=== PATIENT | female | born 1995 | race Native Hawaiian/Other Pacific Islander ===

== ENCOUNTER 2021-07-17 09:14 | Emergency (ER) | payer OTHER, SELFPAY ==
[2021-07-17 09:19] VITALS: BP 147/71; PULSE 100; RESP 18; TEMP 36.2; O2SAT 98; BMI 41.1
[2021-07-17] MEDS: LORazepam 0.5 MG TABLET PO (09:34)
[2021-07-17] MEDS: Diphth,Pertus(ACell),Tet Adult 0.5 ML SYRINGE IM (09:38)
--- NOTE | 2021-07-17 10:33 | ED.WOUNDLAC ---
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 No numbness no weakness no tingling no other injury Related Data Allergies Allergy/AdvReac Type Severity Reaction Status Date / Time Penicillins [PENICILLINS] Allergy Unknown HIVES Verified 07/17/21 09:17 Review of Systems Review of Systems: Positive for left index finger laceration Negatives are no numbness weakness or tingling, no joint pains, no other injury PMFSH Past Medical History Source: nursing notes reviewed Social History Social History Advance Directives: No Advance Directives Information Provided: Yes Physical Exam Vital Signs: Vital Signs: Last Vital Signs Temp 97.2 F 07/17/21 09:19 Pulse 100 07/17/21 09:19 Resp 18 07/17/21 09:19 BP 147/71 H 07/17/21 09:19 Pulse Ox 98 07/17/21 09:19 BMI result Body Mass Index 41.1 General appearance is no acute distress but anxious Head is normocephalic atraumatic Neck is supple Respiratory no distress Extremities the left index finger has a 1.5 cm flap laceration that is superficial and well aligned with no active bleeding, full range of motion in the finger no tendon deficits on flexion or extension and neurovascular intact distal Course Course Course Narrative: Patient's anxiety was relieved after a 0.5 mg of Ativan and she got a tetanus shot The left index finger superficial flap lack was cleansed and irrigated with normal saline and closed with Steri-Strips Discharge Plan Discharge Clinical Impression: Laceration Patient Disposition: Home, Self-Care Additional Instructions: Cut was closed with Steri-Strips, you could remove Steri-Strips in 5-6 days You got a tetanus shot Return any time for redness swelling any sign of infection You could follow with [facility] if needed for any concerns Referrals: [facility] [Provider Group] - 2 days (Left index finger laceration) Stand Alone Forms: Work/School Release Interventions: ED Discharge Assessment Last Done: 07/17/21 10:39 Discharge Date/Time: 07/17/21 10:39
== END 2021-07-17 10:39 | disposition home or self-care (01) ==
PROVIDERS: Emergency Provider Emergency Medicine
DX: S61.211A Laceration without foreign body of left index finger without damage to nail, initial encounter (principal); W26.0XXA Contact with knife, initial encounter; Y93.G1 Activity, food preparation and clean up; Y92.233 Cafeteria of hospital as the place of occurrence of the external cause; Y99.0 Civilian activity done for income or pay
CPT/HCPCS: 90471; 90715; 99282; 99284

== ENCOUNTER 2021-11-16 19:27 | Emergency (ER) | payer SELFPAY ==
--- NOTE | 2021-11-16 | ECG_ITS ---
Test Reason : sob Blood Pressure : / mmHG Vent. Rate : 104 BPM Atrial Rate : 104 BPM P-R Int : 148 ms QRS Dur : 086 ms QT Int : 318 ms P-R-T Axes : 063 048 015 degrees QTc Int : 418 ms Sinus tachycardia Otherwise normal ECG No previous ECGs available Referred By: Generic ED Physician Electronically Signed By:SAVANNAH RUIZ MD
--- NOTE | ~2021-11-16 | XR_ITS ---
EXAMINATION: CHEST 2 VIEWS CLINICAL INFORMATION: cough . COMPARISON: 11/27/2018. TECHNIQUE: PA and lateral views of the chest obtained. FINDINGS: The lungs are mildly hypoexpanded. No focal infiltrate, effusion, edema, or pneumothorax. Cardiac and mediastinal silhouettes are within normal limits for technique. No acute bony abnormality seen XR/XR chest 2V IMPRESSION: No evidence of acute disease
[2021-11-16 19:31] VITALS: BP 144/72; PULSE 116; RESP 16; TEMP 37.5; O2SAT 98; BMI 40.3
[2021-11-16 19:49] LABS: MANUAL DIFF FLAG NO
[2021-11-16 19:50] LABS: Basophils Percent Auto 0.5 % (0-2); Eosinophils Absolute Auto 0.2 X10*3/uL (0.0-0.4); Eosinophils Percent Auto 1.9 % (0-4); Hematocrit 38.1 % (37.0-47.0); Hemoglobin 13.3 g/dl (12.0-16.0); Imm Gran Abs Auto 0.04 X10*3/uL (0.00-0.03); Imm Gran Pct Auto 0.5 % (0.0-0.4); Lymphocytes Absolute Auto 1.2 X10*3/uL (1.2-4.9); Lymphocytes Percent Auto 14.7 % (20-40); Mean Corpuscular HGB Conc 34.9 g/dl (31.0-35.0); Mean Corpuscular Hemoglobin 31.1 pg (27.0-33.0); Mean Platelet Volume 10.1 fL (9.4-12.3); Monocytes Absolute Auto 0.5 X10*3/uL (0.1-1.2); Monocytes Percent Auto 6.3 % (2-11); Neutrophils Absolute Auto 6.4 x10*3/uL (2.0-8.3); Neutrophils Percent Auto 76.1 % (45-73); Platelet Count 248 X10*3/uL (160-400); Red Blood Count 4.28 X10*6/uL (4.20-5.50); Red Cell Distribution Width 12.9 % (11.0-16.0); White Blood Count 8.5 X10*3/uL (4.8-10.8)
--- NOTE | 2021-11-16 20:00 | ED_ITS ---
HPI - Asthma General Chief Complaint: Asthma Stated Complaint: asthma Time Seen by Provider: 11/16/21 19:56 Source: patient Limitations: no limitations History of Present Illness HPI Narrative: This is a 26-year-old female with history of asthma, who was at work today when she developed wheezing. She used her albuterol inhaler several times but still felt like she had tightness in her chest radiating up into her throat. She has had a dry cough. She denies any fever. She denies any pain or swelling in her legs. She has never had to be admitted for her asthma. She denies any URI symptoms or fever. She did state work for 8 hours trying to deal with her breathing. Related Data Previous Rx's Medication Instructions Recorded albuterol sulfate 90 mcg/actuation 2 inh INHALATION Q4H PRN #1 ea 11/16/21 breath activated powder inhaler prednisone 20 mg tablet 40 mg PO DAILY #10 tab 11/16/21 Allergies Allergy/AdvReac Type Severity Reaction Status Date / Time Penicillins [PENICILLINS] Allergy Unknown HIVES Verified 07/17/21 09:17 Review of Systems Review of Systems: Yes all other systems are reviewed and are negative Constitutional: Constitutional: Reports as per HPI and Denies fever(s) Eyes: Eyes: Reports as per HPI and Reports no additional eye complaints ENT: Reports system reviewed and no additional complaints, except as documented, Reports as per HPI, Denies nasal congestion, Denies nasal discharge and Reports sore throat Cardiovascular: Cardiovascular: Reports as per HPI, Reports chest pain and Reports dyspnea Respiratory: Respiratory: Reports as per HPI, Reports cough, Reports dyspnea a nd Reports wheezing Gastrointestinal: Gastrointestinal: Reports as per HPI, Denies abdominal pain, Denies diarrhea and Denies vomiting Genitourinary: Genitourinary: Reports as per HPI, Denies hematuria, Denies urinary frequency and Denies dysuria Musculoskeletal: Musculoskeletal: Reports no additional musculoskeletal complaints and Denies numbness Integumentary/Breasts: Skin/Breast: Reports as per HPI and Denies rash Neurologic: Reports as per HPI, Denies focal weakness and Denies numbness Psychiatric: Psychiatric: Reports no additional psychiatric complaints and Reports as per HPI Endocrine: Endocrine: Reports no additional endocrine complaints and Reports as per HPI Hematologic/Lymphatic: Hematologic/Lymphatic: Reports no additional hematologic/lymphatic complaints, Reports as per HPI and Reports other (No peripheral edema) Allergic/Immunologic: Allergic/Immunologic: Reports wheezing PMFSH Social History Social History Advance Directives: No Physical Exam Vital Signs: Vital Signs: Last Vital Signs Temp 99.5 F 11/16/21 19:31 Pulse 105 H 11/16/21 20:27 Resp 13 11/16/21 20:27 BP 144/72 H 11/16/21 19:31 Pulse Ox 98 11/16/21 19:31 BMI result Body Mass Index 40.3 Const: Other: PERRLA Conj Koppel Mucous membranes moist Throat clear Neck supple Lungs CTA, no wheezes or crackles Heart tachycardic,no murmurs rubs or gallops Abs soft, non tender, non distended Extremities no pitting edema Neuro alert and oriented x 3, non focal, somewhat anxious appearing MDM - Asthma MDM Narrative Medical decision making narrative: Patient had a bronchospastic cough, was not wheezing on exam, was talking in full sentences. Chest x-ray unremarkable. EKG shows tachycardia but no other concerning changes. COVID negative. Patient improved after DuoNeb, prednisone, Ativan. Patient appeared to have some anxiety component. Will treat with albuterol, prednisone as an outpatient Lab Data Attestation: I reviewed the patient's lab results. Result diagrams: 11/16/21 19:43 11/16/21 19:43 Labs: Lab Results 11/16/21 11/16/21 11/16/21 Range/Units 19:43 19:43 20:09 WBC 8.5 (4.8-10.8) X10*3/uL RBC 4.28 (4.20-5.50) X10*6/uL Hgb 13.3 (12.0-16.0) g/dl Hct 38.1 (37.0-47.0) % MCV 89.0 (80.0-98.0) fL MCH 31.1 (27.0-33.0) pg MCHC 34.9 (31.0-35.0) g/dl RDW 12.9 (11.0-16.0) % Plt Count 248 (160-400) X10*3/uL MPV 10.1 (9.4-12.3) fL Immature Gran % (Auto) 0.5 H (0.0-0.4) % Neut % (Auto) 76.1 H (45-73) % Lymph % (Auto) 14.7 L (20-40) % [place] % (Auto) 6.3 (2-11) % Eos % (Auto) 1.9 (0-4) % Baso % (Auto) 0.5 (0-2) % Lymph # (Auto) 1.2 (1.2-4.9) X10*3/uL [place] # (Auto) 0.5 (0.1-1.2) X10*3/uL Eos # (Auto) 0.2 (0.0-0.4) X10*3/uL Baso # (Auto) 0.0 (0.0-0.2) X10*3/uL Abs Immat Gran (auto) 0.04 H (0.00-0.03) X10*3/uL Absolute Neuts (auto) 6.4 (2.0-8.3) x10*3/uL Absolute Nucleated RBC 0.000 (0.0-0.012) X10*3/uL Nucleated RBC % (auto) 0.0 (0.0-0.2) /100WBC Sodium 135 (135-145) mmol/L Potassium 3.8 (3.3-5.1) mmol/L Chloride 106 (96-108) mmol/L Carbon Dioxide 18 L (22-29) mmol/L Anion Gap 15 (12-20) BUN 13 (9-16) mg/dL Creatinine 0.80 (0.5-1.4) mg/dL Estim Creat Clear Calc 125.8 Estimated GFR > 60 Random Glucose 90 (60-115) mg/dL Calcium 9.0 (8.4-10.2) mg/dL Total Bilirubin 0.7 (0.0-1.0) mg/dL AST 23 (5-31) U/L ALT 26 (0-31) U/L Alkaline Phosphatase 78 (39-117) U/L Total Protein 7.7 (6.5-8.0) g/dL Albumin 4.3 (3.5-5.0) g/dL COVID-19 (NILS) Negative (Negative) COVID-19 Clin Com See Note ECG Data ECG interpretation date: 11/16/21 ECG interpretation time: 20:07 Interpretation: Sinus rhythm with a rate of 104. No ST elevation or depression. Normal QRS axis. No ectopy. Discharge Plan Discharge Clinical Impression: Asthma with acute exacerbation Patient Disposition: Home, Self-Care Instructions: Asthma (ED) Additional Instructions: Drink plenty of fluids. Use the prednisone and albuterol as prescribed. Follow up with your primary care physician Prescriptions: New albuterol sulfate 90 mcg/actuation aerosol powdr breath activated 2 inh inhalation Q4H PRN (Reason: shortness of breath or wheezing) Qty: 1 1RF prednisone 20 mg tablet 40 mg PO DAILY Qty: 10 0RF
[2021-11-16 20:05] LABS: Alanine Aminotransferase 26 U/L (0-31); Albumin Level 4.3 g/dL (3.5-5.0); Alkaline Phosphatase 78 U/L (39-117); Anion Gap 15 (12-20); Aspartate Amino Transferase 23 U/L (5-31); Bilirubin Total 0.7 mg/dL (0.0-1.0); Blood Urea Nitrogen 13 mg/dL (9-16); Carbon Dioxide 18 mmol/L (22-29); Chloride 106 mmol/L (96-108); Creatinine Clr Calc Pharmacy 125.8; Estimated Glomerular Filt Rate > 60; Glucose Random 90 mg/dL (60-115); Potassium 3.8 mmol/L (3.3-5.1); Sodium 135 mmol/L (135-145); Total Protein 7.7 g/dL (6.5-8.0)
[2021-11-16] MEDS: LORazepam 1 MG TABLET PO (20:07)
[2021-11-16] MEDS: predniSONE 20 MG TABLET 40 MG PO (20:07)
[2021-11-16] MEDS: Albuterol/Iprat 2.5/0.5MG 3 ML AMPUL.NEB INHALE (20:26)
[2021-11-16 20:27] VITALS: PULSE 105; RESP 13; O2SAT 98
[2021-11-16 20:28] LABS: COVID-19 Test Negative (Negative)
--- NOTE | 2021-11-16 21:25 | PC.NURSE ---
Reviewed discharge instructions with pt. pt verbalized understanding.
== END 2021-11-16 21:27 | disposition home or self-care (01) ==
PROVIDERS: Emergency Provider Emergency Medicine
DX: J45.901 Unspecified asthma with (acute) exacerbation (principal); R05.9 Cough, unspecified; R06.02 Shortness of breath; Z20.822 Contact with and (suspected) exposure to COVID-19; Z79.899 Other long term (current) drug therapy
CPT/HCPCS: 36415; 71046; 80053; 85025; 87635; 93005; 94640; 99283; 99284

== ENCOUNTER 2024-02-10 09:00 | Outpatient (AMB) | payer OTHER, SELFPAY ==
--- NOTE | 2024-02-10 09:01 | MHC.PC.OV ---
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 Required: No Is last menstrual period known: Yes Last menstrual period: 01/18/24 Post menopausal: No Patient : No Allergies Penicillins [PENICILLINS] Allergy (Unknown, Verified 02/10/24 09:10) HIVES Medication List - Last Reconciled 02/10/24 by Joel Pñea CNP albuterol sulfate 90 mcg/actuation 2 inhalations inhalation Q4H PRN prednisone 40 mg (2 x 20 mg) PO DAILY Tobacco use date assessed: 02/10/24 Dental Screening Dental Screen Date: 02/10/24 Did you have a dental visit in the last 12 months?: No Did you have a dental problem in the last 6 months where you did not have access to dental care?: No Was dental information given to patient?: Yes HPI HPI Comments History of Present Illness Details New patient Prior PCP:?? [facility] x 1 Last office visit/CPE: More than 12 years Acute issue(s): Psoriasis -She is currently on Taltz 80mg/ml injection SC monthly. 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 She sleeps an average or 2-3 hours nightly. She has been applying for a job online Anxiety/depression -She notes that she has always been significantly anxious; she has panic attacks (sweating and shaking) in public. She notes that she has been feeling depressed since she lost her job. She has never been diagnosed with anxiety and depression because she has not been seen by a healthcare provider in a long time. She denies SI/HI She notes that she has been making healthy dietary changes. She walks a lot PMHx: Asthma (last episode was on 07/2023), psoriasis, obesity SurgHx: None FHx: Dad: Appendectomy at age 5 SocHx: Smokes 1 cigarette weekly; has has been smoking for 18 years with h/o 1-2 pack, slowly cut down. Drinks alcohol ( fruit drinks and sometimes beers) occasionally. She smokes 5-7 blunts daily, calms and relaxes her and give her appetite She notes that she is sexually active, in a monogamous relationship, and has no concerns for STD She has never had a pap smear test Her nails are very long and painted. Therefore, unable to obtain oxygen saturation [facility] Medical History (Updated 02/10/24 @ 10:11 by Joel Peña CNP) Drug addiction Depression Anxiety Psoriasis Hx of eczema Headache Acid reflux Asthma Surgical History (Updated 02/10/24 @ 10:07 by Siri Yusuf) History of appendectomy Family History (Updated 02/10/24 @ 09:22 by Siri Yusuf) Father Substance abuse High blood pressure High cholesterol Diabetes Cardiovascular disease Mother Asthma High blood pressure High cholesterol Social History Housing: Apartment Patient Tobacco Use Status: Current someday Tobacco user Cigarette Packs Per Day: 0 Cigarettes Per Day: 1 e-Cigarette/Vaping Use: Never Used Second Hand Smoke Exposure: No Substance Use Type: Marijuana service: No Current occupational status: unemployed Current occupational exposures/hazards: No Cognitive needs: No Hearing needs: No Vision needs: No Female Reproductive History Menstrual Date of last menstrual period: 01/18/24 Questionnaire PHQ-9 Over the last 2 weeks, how often have you been bothered by any of the following problems? 1. Little interest or pleasure in doing things: nearly every day 2. Feeling down, depressed, or hopeless: nearly every day 3. Trouble falling or staying asleep, or sleeping too much: nearly every day 4. Feeling tired or having little energy: nearly every day 5. Poor appetite or overeating: nearly every day 6. Feeling bad about yourself - or that you are a failure or have let yourself or your family down: nearly every day 7. Trouble concentrating on things, such as reading the newspaper or watching television: more than half the days 8. Moving or speaking so slowly that other people could have noticed. Or the opposite - being so fidgety or restless that you have been moving around a lot more than usual: not at all 9. Thoughts that you would be better off or of hurting yourself in some way: not at all Total score: 20 Depression Screening Interpretation: Positive Depression Screening Follow-up: Existing condition and Community Mental Health Worker F/U Depression Screening Done: Yes 97026 - PHQ-9 Billing: Yes Source: Developed by Drs. Kishore Ellis, Sabiha Braun, John Rey and colleagues, with an educational vesna from [email or web address] Thrive Questionnaire Date Thrive assessed: 02/10/24 I am a: Patient What is your living situation today?: I have a steady place to live Within the past 12 months, did the food you bought not last and you didn't have the money to get more?: Never true Within the past 12 months, did you worry whether your food would run out before you got money to buy more?: Never true Do you have trouble paying for medicines?: Yes Do you have trouble getting transportation to medical appointments?: No Do you have trouble paying your heating and electricity bill?: No Do you have trouble taking care of your child, family member or friend?: No Do you have trouble with day-to-day activities such as bathing, preparing meals, shopping, managing finances, etc.?: No Are you currently unemployed and looking for a job?: Yes Are you interested in more education?: No Please select the resources that you would like help with: Paying for medicine and Job search/training Currently or been in a relationship where the following occur: No concerns reported THRIVE Score: 0 AUDIT C Alcohol Use Questionnaire (AUDIT-C) 1. How often do you have a drink containing alcohol?: 2-4 times a month 2. How many drinks containing alcohol do you have on a typical day when you are drinking?: 7 to 9 3. How often do you have six or more drinks on one occasion?: Monthly Total Score: 7 Score Reviewed/Action Taken: Yes KIRSTIE-7 AMB Questionnaire KIRSTIE-7 Date KIRSTIE - 7 assessed: 02/10/24 Feeling nervous, anxious, or on edge: 3 = Nearly every day Not being able to stop or control worryin = More than half the days Worrying too much about different things: 2 = More than half the days Trouble relaxin = Nearly every day Being so restless that it is hard to sit still: 3 = Nearly every day Becoming easily annoyed or irritable: 3 = Nearly every day Feeling afraid as if something awful might happen: 2 = More than half the days Total KIRSTIE-7 score (0-4 normal; 5-9 mild; 10-14 moderate; 15-21 severe): 18 Source: Developed by Drs. Kishore Ellis, Sabiha Braun, John Rey and colleagues, with an educational vesna from [email or web address] KIRSTIE-7 Assessment Billing KIRSTIE-7 Assessment Tool: KIRSTIE-7 Assessment 43372 ACT Questionnaire In the past 4 weeks, how much of the time did your asthma keep you from getting as much done at work, school or at home?: None of the time During the past 4 weeks, how often have you had shortness of breath?: Once a day During the past 4 weeks, how often did your asthma symptoms wake you up at night or earlier than usual in the morning?: Once a week During the past 4 weeks, how often have you had to use your rescue inhaler or nebulizer medication?: Once a week or less How would you rate your asthma control during the past 4 weeks?: Well controlled ACT Interpretation: Negative Score: 18 Review of Systems Const Details: Denies chills, Denies fatigue, Denies fever(s), Denies headache(s) and Denies weakness HEENT Denies change in vision, Denies dizziness, Denies headache(s), Denies hearing loss, Denies nasal congestion, Denies sinus pain, Denies sinus pressure and Denies sore throat Card Denies chest pain, Denies lightheadedness, Denies dyspnea and Denies other (palpitations) Resp Denies cough, Denies dyspnea and Denies wheezing GI Denies abdominal pain, Denies melena, Denies hematochezia, Denies change in bowel habits, Denies dyspepsia and Denies nausea Denies hematuria and Denies dysuria Musc Denies abnormal gait, Denies myalgias, Denies arthralgias, Denies numbness and Denies tingling Skin/Breast Reports psoriasis, Denies unusual bruising and Denies wounds Neuro Denies abnormal gait, Denies dizziness, Denies headache(s), Denies memory loss, Denies numbness, Denies Sensory deficit (Neuro), Denies tingling and Denies weakness Psych Denies anxiety, Denies depression and Denies memory loss Endo Denies cold intolerance, Denies fatigue, Denies heat intolerance, Denies polydipsia and Denies polyuria Tony/Lymph Denies easy bleeding and Denies easy bruising Aller/Immun Denies wheezing Physical exam (Primary Care) Vital Signs: Last Vital Signs Temp 98.3 F 02/10/24 09:09 Pulse 80 02/10/24 09:09 Resp 16 02/10/24 09:09 BP 110/74 02/10/24 09:09 BMI result Body Mass Index 42.9 Tobacco/Smoking Status: Tobacco use Status Tobacco use date assessed 02/10/24 02/10/24 09:10 Patient Tobacco Use Status Current someday Tobacco 02/10/24 09:23 e-Cigarette/Vaping Use Never Used 02/10/24 09:23 PHQ-9: PHQ-9 Score PHQ-9: Total score 20 02/10/24 09:31 Depression Screening Interpretation: Positive Depression Screening Follow-up: Existing condition and Community Mental Health Worker F/U Thrive Assessment: Date of Thrive Assessment Date Thrive assessed 02/10/24 02/10/24 09:31 Currently or been in a relationship where the following occur: No concerns reported Const Other: General: no acute distress, well developed, alert and awake Nutritional Appearance: well nourished Orientation/consciousness: patient oriented x3 HENMT Head: Yes normocephalic and Yes atraumatic Ears: hearing grossly normal bilaterally and TM's normal bilaterally General nose exam: Normal external nose present and Normal nares present Mouth: Normal oral and palatal mucosa present and moist mucous membranes Teeth and gingiva: dentition normal Throat: Yes oropharynx normal Eyes Pupils: Equal, round and reactive pupils present and Pupil accommodation reflex normal EOM: EOMs intact bilaterally Neck Neck: Yes normal visual inspection, Yes no lymphadenopathy and Yes trachea midline Thyroid: Thyroid normal Carotids: no bruits Lymphatic: no lymphadenopathy noted Chest Chest palpation & inspection: normal inspection of the chest Resp Effort & Inspection: normal respiratory effort Auscultation: clear to auscultation bilaterally Cardio Rate: regular rate Rhythm: regular rhythm Heart sounds: S1 normal heart sound present, S2 normal heart sound present, no gallops, no murmurs and no rubs Bruits: no abdominal aortic bruits and no carotid bruits GI Palpation (GI): No Abdominal aortic bruit present, Soft to palpation, nontender, No hepatosplenomegaly present and No Rebound tenderness present Auscultation: normal bowel sounds General: Yes no CVA tenderness Back/Spine/Pelvis Back: no CVA tenderness Cervical Spine: cervical ROM normal and No Cervical spine tenderness Thoracic/Lumbar Spine: thoraco-lumbar ROM normal, No pain with thoraco-lumbar ROM, No thoracic spinal tenderness and No lumbar spinal tenderness Skin General: warm and dry. Normal skin color. Normal skin turgor Lesions: no lesions Rashes: Dry, flaky skin on a flat, pink and silver base to right anterior lower leg Trauma: no lacerations or abrasions Wounds: no wounds Nails: normal Neuro General: patient oriented x3, gait normal and CN's II-XI intact bilaterally Cranial nerves: Yes Equal, round and reactive pupils present Cognition (Neuro): normal cognition Gait exam (Neuro): Normal gait present Motor exam (neuro): 5/5 motor strength present throughout Sensory Exam: No Sensory deficit (Neuro) Deep tendon reflexes (DTR's): Right patellar reflex intensity grade: 2+ and Left patellar reflex intensity grade: 2+ Extrem General: Yes normal to inspection, No edema and No calf tenderness Psych Appearance: grossly normal Affect: normal affect Attitude: cooperative Thought process: Normal thought process present Assessment and Plan Assessment & Plan (1) Normal physical examination, routine: Code(s): Z00.00 - Encounter for general adult medical examination without abnormal findings Plan: No significant physical restrictions or limitations noted Continue current treatment regimen Healthy diet and routine exercise encouraged Encouraged to avoid binge drinking and stop smoking cigarettes Advised to get lab work done and follow-up in 1 month for lab reviews, anxiety, and depression or sooner with worsening or new symptoms Verbalized understanding and agreed with the treatment plan (2) Anxiety and depression: Code(s): F41.9 - Anxiety disorder, unspecified; F32.A - Depression, unspecified Plan: Reports significant anxiety and depressive symptoms. She has always been anxious. She became depressed after she lost her job over a week ago. She has never been formally diagnosed for anxiety or depression. She is interested and psychotropic medications. However, she smokes 7 blunts of cannabis daily. Encouraged to limit or avoid smoking cannabis before psychotropic medications can be initiated. PHQ-9 and KIRSTIE-7 scores revealed severe depression and anxiety. She declines referral to psychotherapy. She met with the [facility] who would refer her to a psychiatrist. Routine exercise encouraged. Follow-up in 1 month or sooner with worsening or new symptoms. Verbalized understanding and agreed with the treatment plan. (3) Insomnia: Code(s): G47.00 - Insomnia, unspecified Plan: History of poor sleep which worsened after she lost her job over a week ago Plan as above Instructed on sleep hygiene (4) Psoriasis: Code(s): L40.9 - Psoriasis, unspecified Plan: Dry, flaky skin on a flat, pink and silver base to right anterior lower leg Continue current treatment regimen with Talz SC injections Continue follow-up with Dermatology as planned Verbalized understanding and agreed with the treatment plan (5) Asthma: Code(s): J45.909 - Unspecified asthma, uncomplicated Plan: Last episode was on 07/2023 Continue to use albuterol inhaler as prescribed Follow-up with symptoms or concerns Verbalized understanding and agreed with the plan (6) Morbid obesity with BMI of 40.0-44.9, adult: Code(s): E66.01 - Morbid (severe) obesity due to excess calories; Z68.41 - Body mass index [BMI] 40.0-44.9, adult Plan: She currently weighs 258 lb, BMI is 42.9 Declines referral to a dietitian or weight management clinic She notes that she will continue to improve her diet and exercise routinely Healthy diet and routine exercise encouraged She may inform her PCP if she changes her mind on referral to dietitian or weight management Return with symptoms or concerns Verbalized understanding and agreed with treatment plan (7) Pap smear for cervical cancer screening: Code(s): Z12.4 - Encounter for screening for malignant neoplasm of cervix Plan: She has never had a Pap smear test Referred to [facility] (8) Laboratory tests ordered as part of a complete physical exam (CPE): Code(s): Z00.00 - Encounter for general adult medical examination without abnormal findings Plan: Fasting labs ordered as part of a complete physical exam. Advised to fast for at least 10 hours before getting labs drawn. May drink water Verbalized understanding and agreed with treatment plan. Orders: Orders Complete Blood Count Auto Diff Today Z00.00 - Encounter for general adult medical examination without abnormal findings TSH reflex Free T4 Today Z00.00 - Encounter for general adult medical examination without abnormal findings UA CC w/rflx Micro + Cult Today Z00.00 - Encounter for general adult medical examination without abnormal findings Comprehensive [place]. Panel Fast Today Z00.00 - Encounter for general adult medical examination without abnormal findings Lipid Panel Today Z00.00 - Encounter for general adult medical examination without abnormal findings Referrals [employer]ER Referral Z12.4 - Encounter for screening for malignant neoplasm of cervix Medications: Discontinued prednisone Discontinued Reason: Patient Completed Course 40 mg (2 x 20 mg) PO DAILY 10 tabs 0RF Coding Level of Care Code New Pt Level 4 (61517) New Pt Prev Care 18-39yr(03274 Diagnoses Normal physical examination, routine Z00.00 Anxiety and depression F41.9; F32.A Insomnia G47.00 Psoriasis L40.9 Asthma J45.909 Morbid obesity with BMI of 40.0-44.9, adult E66.01; Z68.41 Pap smear for cervical cancer screening Z12.4 Laboratory tests ordered as part of a complete physical exam (CPE) Z00.00 Additional Codes KIRSTIE-7 Assessment Billing - KIRSTIE-7 Assessment Tool: KIRSTIE-7 Assessment [id number] ([id number])
[2024-02-10 09:09] VITALS: BP 110/74; PULSE 80; RESP 16; TEMP 36.8; BMI 42.9
== END 2024-02-10 10:14 | disposition home or self-care (01) ==
PROVIDERS: Visit Provider Nurse Practitioner Family
DX: Z00.00 Encounter for general adult medical examination without abnormal findings (principal); F41.9 Anxiety disorder, unspecified; E66.01 Morbid (severe) obesity due to excess calories; Z68.41 Body mass index [BMI] 40.0-44.9, adult; F32.A Depression, unspecified; G47.00 Insomnia, unspecified; L40.9 Psoriasis, unspecified; J45.909 Unspecified asthma, uncomplicated
CPT/HCPCS: 96127; 99385

== ENCOUNTER 2024-03-16 11:14 | Outpatient (AMB) | payer OTHER, SELFPAY ==
--- NOTE | 2024-03-16 11:16 | MHC.PC.OV ---
Vital Signs 03/16/24 11:20 Height 5 ft 5 in Weight 260 lb BMI 43.3 BP 130/73 Blood Pressure Location Rt brachial Position Sitting Respiration 16 Pulse 100 Pulse Source Pulse Oximeter Temp 99.1 F Temp Source Oral Pulse Oximetry (%) 99 Intake Visit Reasons: 1 mos anxiety, depression, labs Intake Note: patient here for 1 month follow up on depression, anxiety and labs Race Starter Required: No Is last menstrual period known: Yes Last menstrual period: 03/15/24 Post menopausal: No Allergies Penicillins [PENICILLINS] Allergy (Unknown, Verified 03/16/24 11:26) HIVES Medication List - Last Reconciled 03/16/24 by Joel Peña CNP albuterol sulfate 90 mcg/actuation 2 inhalations inhalation Q4H PRN Tobacco use date assessed: 03/16/24 Dental Screening Dental Screen Date: 02/10/24 HPI HPI Comments History of Present Illness Details 29-year-old female presents for anxiety, depression, and review of recent lab results She notes that she is doing better than her last visit. 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 She notes that her also acquired employment recently. Her depressive symptoms have improve. However, she has always been anxious. Sleep is still an issue; she has trouble falling and staying asleep; she sleeps an average of 2-3 hours nightly despite switching off electronic devices and maintaining a dark room environment. She has been taking melatonin without improvement. She has not been contacted to connect to a psychiatrist She notes heartburn and nausea with eating and drinking fluids for the past 2-3 weeks. She notes that she has been maintaining a healthy diet. She also walks daily. She has been taking Zantac without relief She cut down form smoking 9 blunts of cannabis daily to 5-6 blunts daily She did not get lab work done for this visit but plans on doing it today [facility] Medical History (Updated 03/16/24 @ 11:50 by Joel Peña CNP) Drug addiction Depression Anxiety Psoriasis Hx of eczema Headache Acid reflux Asthma Surgical History (Updated 02/10/24 @ 10:07 by Siri Yusuf) History of appendectomy Family History (Updated 02/10/24 @ 09:22 by Siri Yusuf) Father Substance abuse High blood pressure High cholesterol Diabetes Cardiovascular disease Mother Asthma High blood pressure High cholesterol Social History (Updated 02/10/24 @ 09:23 by Siri Yusuf) Housing: Apartment Patient Tobacco Use Status: Current someday Tobacco user Cigarette Packs Per Day: 0 Cigarettes Per Day: 1 e-Cigarette/Vaping Use: Never Used Second Hand Smoke Exposure: No Substance Use Type: Marijuana service: No Current occupational status: unemployed Current occupational exposures/hazards: No Cognitive needs: No Hearing needs: No Vision needs: No Female Reproductive History Menstrual Date of last menstrual period: 03/15/24 Questionnaire PHQ-9 Over the last 2 weeks, how often have you been bothered by any of the following problems? 1. Little interest or pleasure in doing things: several days 2. Feeling down, depressed, or hopeless: more than half the days 3. Trouble falling or staying asleep, or sleeping too much: nearly every day 4. Feeling tired or having little energy: nearly every day 5. Poor appetite or overeating: more than half the days 6. Feeling bad about yourself - or that you are a failure or have let yourself or your family down: not at all 7. Trouble concentrating on things, such as reading the newspaper or watching television: several days 8. Moving or speaking so slowly that other people could have noticed. Or the opposite - being so fidgety or restless that you have been moving around a lot more than usual: not at all 9. Thoughts that you would be better off or of hurting yourself in some way: not at all Total score: 12 Depression Screening Interpretation: Positive Depression Screening Follow-up: Existing condition Depression Screening Done: Yes 55405 - PHQ-9 Billing: Yes Source: Developed by Drs. Kishore Ellis, Sabiha Braun, John Rey and colleagues, with an educational vesna from [employer]. Thrive Questionnaire Date Thrive assessed: 03/16/24 I am a: Patient What is your living situation today?: I have a steady place to live Within the past 12 months, did the food you bought not last and you didn't have the money to get more?: Sometimes True Within the past 12 months, did you worry whether your food would run out before you got money to buy more?: Sometimes True Do you have trouble paying for medicines?: No Do you have trouble getting transportation to medical appointments?: No Do you have trouble paying your heating and electricity bill?: No Do you have trouble taking care of your child, family member or friend?: No Do you have trouble with day-to-day activities such as bathing, preparing meals, shopping, managing finances, etc.?: No Are you currently unemployed and looking for a job?: No Are you interested in more education?: No Please select the resources that you would like help with: None Currently or been in a relationship where the following occur: No concerns reported THRIVE Score: 2 KIRSTIE-7 AMB Questionnaire KIRSTIE-7 Date KIRSTIE - 7 assessed: 03/16/24 Feeling nervous, anxious, or on edge: 2 = More than half the days Not being able to stop or control worryin = More than half the days Worrying too much about different things: 2 = More than half the days Trouble relaxin = Nearly every day Being so restless that it is hard to sit still: 1 = Several days Becoming easily annoyed or irritable: 2 = More than half the days Feeling afraid as if something awful might happen: 1 = Several days Total KIRSTIE-7 score (0-4 normal; 5-9 mild; 10-14 moderate; 15-21 severe): 13 Source: Developed by Drs. Kishore Ellis, Sabiha Braun, John Rey and colleagues, with an educational vesna from [employer]. KIRSTIE-7 Assessment Billing KIRSTIE-7 Assessment Tool: KIRSTIE-7 Assessment 90758 Review of Systems Const Details: Const Denies chills, Denies fatigue, Denies fever(s), Denies headache(s) and Denies weakness ENT Denies dizziness and Denies headache(s) Card Denies chest pain, Denies lightheadedness, Denies dyspnea and Denies other (Palpitations) Resp Denies cough, Denies dyspnea, Denies wheezing and Denies other ( shortness of breath) GI Denies abdominal pain, Denies melena, Denies hematochezia, Denies change in bowel habits, Denies dyspepsia Denies hematuria and Denies dysuria Musc Denies abnormal gait, Denies myalgias, Denies arthralgias, Denies numbness and Denies tingling Skin/Breast Denies rash, Denies unusual bruising and Denies wounds Neuro Denies abnormal gait, Denies dizziness, Denies headache(s), Denies memory loss, Denies numbness, Denies Sensory deficit (Neuro), Denies tingling and Denies weakness Psych Reports anxiety, Reports depression, Denies memory loss Endo Denies cold intolerance, Denies fatigue, Denies heat intolerance, Denies polydipsia and Denies polyuria Aller/Immun Denies wheezing Physical exam (Primary Care) Vital Signs: Last Vital Signs Temp 99.1 F 03/16/24 11:20 Pulse 100 03/16/24 11:20 Resp 16 03/16/24 11:20 BP 130/73 03/16/24 11:20 Pulse Ox 99 03/16/24 11:20 BMI result Body Mass Index 43.3 Tobacco/Smoking Status: Tobacco use Status Tobacco use date assessed 03/16/24 03/16/24 11:25 Patient Tobacco Use Status Current someday Tobacco 03/16/24 11:19 e-Cigarette/Vaping Use Never Used 03/16/24 11:19 PHQ-9: PHQ-9 Score PHQ-9: Total score 12 03/16/24 11:28 Depression Screening Interpretation: Positive Depression Screening Follow-up: Existing condition Thrive Assessment: Date of Thrive Assessment Date Thrive assessed 03/16/24 03/16/24 11:27 Currently or been in a relationship where the following occur: No concerns reported Const Other: General: no acute distress and well developed Nutritional Appearance: well nourished Orientation/consciousness: patient oriented x3 HENMT Head: Yes normocephalic and Yes atraumatic Eyes General: appearance normal, both eyes and all related structures Pupils: Equal, round and reactive pupils present EOM: EOMs intact bilaterally Resp Effort & Inspection: normal respiratory effort Auscultation: clear to auscultation bilaterally Cardio Rate: regular rate Rhythm: regular rhythm Heart sounds: S1 normal heart sound present, S2 normal heart sound present, no gallops, no murmurs and no rubs GI Palpation (GI): No Abdominal aortic bruit present, Soft to palpation, nontender, No hepatosplenomegaly present and No Rebound tenderness present Auscultation: normal bowel sounds General: Yes no CVA tenderness Back/Spine/Pelvis Back: no CVA tenderness Cervical Spine: cervical ROM normal and No Cervical spine tenderness Thoracic/Lumbar Spine: thoraco-lumbar ROM normal, No pain with thoraco-lumbar ROM, No thoracic spinal tenderness and No lumbar spinal tenderness Extrem General: Yes normal to inspection, No edema and No calf tenderness Skin General: warm and dry. Normal skin color. Normal skin turgor Neuro General: patient oriented x3, gait normal and no focal neuro deficit Cranial nerves: Yes Equal, round and reactive pupils present Cognition (Neuro): normal cognition Gait exam (Neuro): Normal gait present Sensory Exam: No Sensory deficit (Neuro) Psych Appearance: grossly normal Affect: normal affect Attitude: cooperative Thought process: Normal thought process present Assessment and Plan Assessment & Plan (1) Anxiety and depression: Code(s): F41.9 - Anxiety disorder, unspecified; F32.A - Depression, unspecified Plan: Anxiety and depressive symptoms have improved since her last visit. Sleep continues to be an issue. She is happy that her and her have secured employment PHQ-9 and KIRSTIE-7 scores revealed moderate depression and anxiety Routine exercise encouraged Advised to cut down or avoid smoking cannabis. Informed that cannabis would interact with psychotropic medications. She notes that she will continue to cut down on cannabis use Message sent to the [facility], notifying him that the patient has heard from the psychiatric referral Advised to get lab work done and follow-up in 2-3 weeks for a telehealth visit for labs review Encouraged to follow-up with worsening or new symptoms Verbalized understanding and agreed with the treatment plan (2) Insomnia: Code(s): G47.00 - Insomnia, unspecified Plan: As above (3) Heartburn: Code(s): R12 - Heartburn Plan: Reports heartburn and nausea with eating and drinking fluids for the past 2-3 week. Her symptoms are refractory to Zantac Omeprazole 20 mg daily ordered. Advised to take as prescribed. Instructed on the risks, benefits, and potential adverse reactions of the medication Healthy diet encouraged. Advised to avoid fried or greasy foods Follow-up with worsening or new symptoms. May referred to GI Verbalized understanding and agreed with the treatment plan Medications: New omeprazole 20 mg PO DAILY 30 caps 2RF 30 days Coding Level of Care Code Est Pt Level 4 (48149) Complex EM visit Add On G2211 Diagnoses Anxiety and depression F41.9; F32.A Insomnia G47.00 Heartburn R12 Additional Codes KIRSTIE-7 Assessment Billing - KIRSTIE-7 Assessment Tool: KIRSTIE-7 Assessment [id number] ([id number])
[2024-03-16 11:20] VITALS: BP 130/73; PULSE 100; RESP 16; TEMP 37.3; O2SAT 99; BMI 43.3
== END 2024-03-16 11:46 | disposition home or self-care (01) ==
PROVIDERS: Visit Provider Nurse Practitioner Family
DX: F41.9 Anxiety disorder, unspecified (principal); F32.A Depression, unspecified; G47.00 Insomnia, unspecified; R12 Heartburn
CPT/HCPCS: 96127; 99214; G2211

== ENCOUNTER 2024-03-16 11:57 | Outpatient (REF) | payer OTHER, SELFPAY ==
[2024-03-16 14:43] LABS: Appearance Urine Turbid; Color Urine Yellow; Glucose Urine UA Negative (Negative); Leukocyte Esterase Urine Negative (Negative); Nitrite Urine Negative (Negative); PH 5.5 (5.0-9.0); UMIC TRIGGER UACC YES; Urine Blood Negative (Negative); Urine Ketones Negative (Negative); Urine Protein 30 (1+) mg/dL (Neg-Trace)
[2024-03-16 14:49] LABS: Bacteria Urine None Seen (None Seen); Hyaline Casts Urine 0-2 /LPF (0-2); RBC Urine 0-2 /HPF (0-2); WBC Urine 0-5 /HPF (0-5)
[2024-03-16 14:51] LABS: MANUAL DIFF FLAG NO
[2024-03-16 14:54] LABS: Basophils Percent Auto 0.4 % (0-2); Eosinophils Absolute Auto 0.3 X10*3/uL (0.0-0.4); Eosinophils Percent Auto 4.1 % (0-4); Hematocrit 39.3 % (37.0-47.0); Hemoglobin 13.6 g/dl (12.0-16.0); Imm Gran Abs Auto 0.03 X10*3/uL (0.00-0.03); Imm Gran Pct Auto 0.4 % (0.0-0.4); Lymphocytes Absolute Auto 2.1 X10*3/uL (1.2-4.9); Lymphocytes Percent Auto 26.6 % (20-40); Mean Corpuscular HGB Conc 34.6 g/dl (31.0-35.0); Mean Corpuscular Hemoglobin 31.5 pg (27.0-33.0); Mean Platelet Volume 10.7 fL (9.4-12.3); Monocytes Absolute Auto 0.5 X10*3/uL (0.1-1.2); Monocytes Percent Auto 6.3 % (2-11); Neutrophils Absolute Auto 4.8 x10*3/uL (2.0-8.3); Neutrophils Percent Auto 62.2 % (45-73); Platelet Count 253 X10*3/uL (160-400); Red Blood Count 4.32 X10*6/uL (4.20-5.50); Red Cell Distribution Width 13.1 % (11.0-16.0); White Blood Count 7.8 X10*3/uL (4.8-10.8)
[2024-03-16 15:20] LABS: Alanine Aminotransferase 83 U/L (0-31); Albumin Level 4.1 g/dL (3.5-5.0); Alkaline Phosphatase 79 U/L (39-117); Anion Gap 11 (12-20); Aspartate Amino Transferase 41 U/L (5-31); Bilirubin Total 0.5 mg/dL (0.0-1.0); Blood Urea Nitrogen 8 mg/dL (9-16); Calcium 9.2 mg/dL (8.4-10.2); Carbon Dioxide 23 mmol/L (22-29); Chloride 108 mmol/L (96-108); Cholesterol 165 mg/dL (<200); Estimated Glomerular Filt Rate > 60; Glucose Fasting 111 mg/dL (60-99); HDL Cholesterol 29 mg/dL (>40); LDL Cholesterol Calculated 105 mg/dL (<100); Sodium 138 mmol/L (135-145); Total Protein 7.6 g/dL (6.5-8.0); Triglycerides 159 mg/dL (<150)
[2024-03-16 15:27] LABS: TSH reflex Free T4 0.75 uIU/mL (0.32-4.0)
== END 2024-03-16 11:58 | disposition home or self-care (01) ==
LOC: HO.WFDLDS 11:57
PROVIDERS: Visit Provider Nurse Practitioner Family
DX: Z00.00 Encounter for general adult medical examination without abnormal findings (principal)
CPT/HCPCS: 36415; 80053; 80061; 81001; 84443; 85025

== ENCOUNTER 2024-03-29 14:31 | Outpatient (AMB) | payer OTHER, SELFPAY ==
--- NOTE | 2024-03-29 08:28 | A.OFFPC_ITS ---
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: No Allergies Penicillins [PENICILLINS] Allergy (Unknown, Verified 03/29/24 14:27) HIVES Tobacco use date assessed: 03/16/24 Dental Screening Dental Screen Date: 02/10/24 HPI HPI Comments History of Present Illness Details 29-year-old female presents for a tele alth visit for review of recent lab results She reports very low sex drive for the past 3-4 years She denies acute symptoms PFSH Medical History (Updated 03/29/24 @ 14:53 by Joel Peña CNP) Drug addiction Depression Anxiety Psoriasis Hx of eczema Headache Acid reflux Asthma Surgical History (Updated 02/10/24 @ 10:07 by Siri Yusuf) History of appendectomy Family History (Updated 02/10/24 @ 09:22 by Siri Yusuf) Father Substance abuse High blood pressure High cholesterol Diabetes Cardiovascular disease Mother Asthma High blood pressure High cholesterol Social History (Updated 02/10/24 @ 09:23 by Siri Yusuf) Housing: Apartment Patient Tobacco Use Status: Current someday Tobacco user Cigarette Packs Per Day: 0 Cigarettes Per Day: 1 e-Cigarette/Vaping Use: Never Used Second Hand Smoke Exposure: No Substance Use Type: Marijuana service: No Current occupational status: unemployed Current occupational exposures/hazards: No Cognitive needs: No Hearing needs: No Vision needs: No Questionnaire Thrive Questionnaire Date Thrive assessed: 03/16/24 KIRSTIE-7 AMB Questionnaire KIRSTIE-7 Date KIRSTIE - 7 assessed: 03/16/24 Source: Developed by Drs. Kishore Ellis, Sabiha Braun, John Rey and colleagues, with an educational vesna from [employer]. Review of Systems Const Details: Const Denies chills, Denies fatigue, Denies fever(s), Denies headache(s) and Denies weakness ENT Denies dizziness and Denies headache(s) Card Denies chest pain, Denies lightheadedness, Denies dyspnea and Denies other (Palpitations) Resp Denies cough, Denies dyspnea, Denies wheezing and Denies other ( shortness of breath) GI Denies abdominal pain, Denies melena, Denies hematochezia, Denies change in bowel habits, Denies dyspepsia and Denies nausea Denies hematuria and Denies dysuria Musc Denies abnormal gait, Denies myalgias, Denies arthralgias, Denies numbness and Denies tingling Skin/Breast Denies rash, Denies unusual bruising and Denies wounds Neuro Denies abnormal gait, Denies dizziness, Denies headache(s), Denies memory loss, Denies numbness, Denies Sensory deficit (Neuro), Denies tingling and Denies weakness Psych Denies anxiety, Denies depression, Denies memory loss Endo Denies cold intolerance, Denies fatigue, Denies heat intolerance, Denies polydipsia and Denies polyuria Aller/Immun Denies wheezing Physical exam (Primary Care) Tobacco/Smoking Status: Tobacco use Status Tobacco use date assessed 03/16/24 03/29/24 08:30 Patient Tobacco Use Status Current someday Tobacco 03/29/24 08:30 e-Cigarette/Vaping Use Never Used 03/29/24 08:30 Thrive Assessment: Date of Thrive Assessment Date Thrive assessed 03/16/24 03/29/24 08:30 Const Other: Telehealth visit. No physical exam Telehealth Telehealth Telehealth Platform: Telephone Location of provider rendering services: practice address Location of patient: address on file Patient Identification confirmed using: Name, : Yes Telehealth method: voice only Patient verbally consented to treatment: Yes Patient verbally consented to billing insurance company: Yes Patient informed of any privacy concerns related to visit: Yes Assessment and Plan Assessment & Plan (1) Elevated fasting glucose: Code(s): R73.01 - Impaired fasting glucose Plan: Recent lab results reviewed with the patient Fasting blood sugar is elevated, 111 Will recheck fasting glucose and make changes as needed Healthy diet and routine exercise encouraged Verbalized understanding and agreed with the plan (2) Transaminitis: Code(s): R74.01 - Elevation of levels of liver transaminase levels Plan: Recent AST/ALT levels are elevated, 41 an 83 respectively No acute symptoms Likely hepatic steatosis Healthy diet and routine exercise encouraged Will recheck liver enzymes in 3 months Follow-up with symptoms or concerns Verbalized understanding and agreed with the plan (3) Dyslipidemia: Code(s): E78.5 - Hyperlipidemia, unspecified Plan: Recent triglycerides level is slightly elevated, 159; HDL level is low, 29 Advised to limit foods high in saturated fat and avoid foods high in trans fat Routine exercise encouraged Will recheck lipid panel level in 3 months Verbalized understanding and agreed with the plan (4) Decreased libido: Code(s): R68.82 - Decreased libido Plan: She reports very low sex drive for the past 3-4 years Instructed on factors that can decreased libido, including fatigue/low energy Routine exercise encouraged 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 She notes that she has an appointment with them next month Follow-up as needed Verbalized understanding and agreed with the plan Orders: Orders Glucose Fasting Today R73.01 - Impaired fasting glucose Lipid Panel 3 Months E78.5 - Hyperlipidemia, unspecified Liver Panel 3 Months R74.01 - Elevation of levels of liver transaminase levels Coding Level of Care Code Tele Est Pt Level 3 (63740) Diagnoses Elevated fasting glucose R73.01 Transaminitis R74.01 Dyslipidemia E78.5 Decreased libido R68.82 Time Spent (min) 20
== END 2024-03-29 15:01 | disposition home or self-care (01) ==
LOC: HO.HMGFM 14:31
PROVIDERS: PCP Nurse Practitioner Family; Visit Provider Nurse Practitioner Family
DX: R73.01 Impaired fasting glucose (principal); R74.01 Elevation of levels of liver transaminase levels; E78.5 Hyperlipidemia, unspecified; R68.82 Decreased libido
CPT/HCPCS: 99213